=== PATIENT | male | born 1995 | race Hispanic/Latino ===

== ENCOUNTER 2023-01-01 10:33 | Emergency (ER) | payer SELFPAY ==
[2023-01-01 10:34] VITALS: BP 138/83; PULSE 92; RESP 18; TEMP 36.6; O2SAT 97; BMI 28.4
--- NOTE | 2023-01-01 10:43 | EX.ED.UPPERE ---
HPI History of Present Illness Chief Complaint: Upper Extremity Injury Informant: patient and friend Narrative Narrative: Here with his friend translating, right hand injury 45 minutes prior to arrival. Had his car up on a yunior, fell down crushing his hand however he was able to pull it out quickly. Pain to the right hand. No other injuries. History of nonsurgical wrist fracture 3 years ago while in [place]. Denies any allergies. No medications taken prior to arrival. Prior similar symptoms: No PFSH PFSH Medical History no medical history Home Medications hydrocodone-acetaminophen 5-325mg 5mg-325mg 1 tab PO Q6H PRN PRN Pain 3 days #12 TABLETS 01/01/23 [Rx Last Taken Unknown] ibuprofen 600 mg tablet 600 mg PO Q6H PRN PRN pain #30 TABLETS 01/01/23 [Rx Last Taken Unknown] Allergy/AdvReac Type Severity Reaction Status Date / Time No Known Allergies Allergy Verified 01/01/23 10:35 Surgical History no surgical history Social History Smoking Status: Never smoker ROS ROS ED Constitutional Constitutional ED: Denies chills, fever(s) or sweats Eyes Eyes: Denies change in vision ENT ENT ED: Denies dysphagia or sore throat Cardiovascular Cardiovascular: Denies chest pain, leg edema, palpitations or racing heartbeat Respiratory/Chest Respiratory/Chest: Denies cough, dyspnea or dyspnea on exertion Gastrointestinal Gastrointestinal: Denies abdominal pain, diarrhea, nausea or vomiting Genitourinary Genitourinary ED: Denies dysuria, hematuria or urinary frequency Musculoskeletal Musculoskeletal: Reports extremity pain; Denies back pain or neck pain Integumentary Denies rash or wounds Neurologic Neurologic: Denies headache(s), paresthesias or weakness EXAM Physical Exam Const Vital Signs: 01/01/23 10:34 Temperature 97.8 F Temperature Source Temporal Pulse Rate 92 Respiratory Rate 18 Blood Pressure 138/83 H Blood Pressure Mean 101 Pulse Ox 97 Oxygen Delivery Method Room Air Positive well nourished and well developed General Appearance ED: well developed and NAD HEENT Reports moist mucous membranes normocephalic and atraumatic Eyes PERRL, EOMs intact bilaterally and conjunctivae normal General Eye ED: Yes normal appearance of both eyes Neck no lymphadenopathy and supple General: Negative for tenderness Chest Wall Chest: Negative for tenderness Resp normal respiratory effort and normal air movement Effort and Inspection: symmetric chest movement; Negative for respiratory distress Cardio regular rate, regular rhythm and no murmurs Peripheral Pulses: pulses 2+ throughout GI normal to inspection, nondistended, normoactive bowel sounds and non-tender Palpation: Negative for guarding or rebound tenderness present Back/Spine no CVA tenderness and no thoracic nor lumbar tenderness Extremity Extremity Narrative: Upper extremity: No elbow or wrist tenderness. There is swelling to the ulnar aspect of the hand fourth and fifth metacarpals. Small abrasion superficially, no lacerations. Tenderness to palpation. No injuries to the digits. Cap refill less than sec since. General Extremety ED: Negative for edema or tenderness General Extremity: Negative for edema Neuro oriented x3 and no sensory deficits noted Sensorium / Orientation: awake and alert Skin no rashes or lesions noted Skin Narrative: See above MDM MDM MDM Narrative Medical decision making narrative: Interventions / MDM: Differential diagnosis: Right hand fracture, right hand contusion Diagnosis considered but do not suspect: N/A My EKG interpretation: N/A Imaging independently reviewed and interpreted by myself: Right hand 3 view x-ray: Acute boxer's fracture distal fifth metacarpal angle approximately 80 degrees. External documents reviewed: N/A Test considered but not ordered:N/A ED course: Patient with swelling tenderness, ibuprofen and [place] x1. X-ray notes acute boxer's fracture. Read discussed with patient and significant other, he denies being in a fight. He was placed in an ulnar gutter. Prescription for pain medications were printed due to electronic system not allowing to transmit through to his pharmacy. I did discuss with orthopedic on-call Dr. Caba for outpatient follow-up. Procedure note: Verbal consent. Splinting. Nylon sleeve placed right hand, Curlex dressing. 5 inch plaster was used for ulnar gutter, Ronald wrap to secure. Patient tolerated procedure well neurovascular intact post splinting. Re-evaluation: stable Disposition discussed with patient/family/significant other: Patient and significant other Case discussed with consulting clinician: N/A This note was generated with [employer] software. It may contain incorrect words, spelling, and punctuation that were not noted in checking the note before signing. Discharge Plan Triage Chief Complaint: Upper Extremity Injury ED Provider: Ernie Vitale Dx/Rx/DC Orders Clinical Impression: Closed right hand fracture, Boxer's fracture Instructions: ED Boxer Fracture Prescriptions: New ibuprofen 600 mg tablet 600 mg PO Q6H PRN PRN (Reason: pain) Qty: 30 0RF hydrocodone-acetaminophen [hydrocodone-acetaminophen] 5-325 mg tablet 1 tab PO Q6H PRN PRN (Reason: Pain) 3 Days Qty: 12 0RF Primary Care Provider: Care Physician,No Primary Referrals: Ryan Caba DO [Med Staff - Active Staff] - 3-5 Days Care Physician,No Primary [Primary Care Provider] - Activity Restrictions/Additional Instructions: Acute boxer's fracture right hand. Maintain your splint. Pain medicines as prescribed. Follow-up with Dr. Caba. Disposition Disposition: Home, Self Care Discharge Date/Time: 01/01/23 12:12
[2023-01-01] MEDS: Ibuprofen 600 MG Tablet PO (10:53)
[2023-01-01] MEDS: HYDROcodone Bitartrate/Apap 5/325 Tablet PO (10:53)
--- NOTE | 2023-01-01 10:55 | RAD_ITS ---
STUDY: X-RAY - RIGHT HAND REASON FOR EXAM: Male, 27 years old. injury TECHNIQUE: 3 view(s) of the hand. COMPARISON: None. FINDINGS: Normal radiocarpal articulation. Normal distal radioulnar joint. Normal visualized carpal bones. Normal carpal articulations Normal carpometacarpal articulation of the thumb. Normal second through fifth carpometacarpal joints. Acute comminuted volarly angulated fracture of the neck and head of the fifth metacarpal bone consistent with a boxer''s fracture. Normal metacarpophalangeal joint of the thumb. Normal interphalangeal joint of the thumb. Normal proximal and distal phalanges of the thumb. Normal metacarpophalangeal joints of the second through fifth fingers. Normal proximal and distal interphalangeal joints of the second through fifth fingers. Normal phalanges of the second through fifth fingers. The soft tissue structures are unremarkable. RAD/Hand Min 3 Views IMPRESSION: Acute boxer''s fracture. Electronically Signed: Scott Cabral MD at 11:38 EDT ,
[2023-01-01 12:11] VITALS: BP 118/63; PULSE 71; RESP 15; O2SAT 98
== END 2023-01-01 12:12 | disposition home or self-care (01) ==
LOC: ED 12:07
PROVIDERS: Emergency Provider Emergency Medicine; Visit Provider Emergency Medicine
DX: S62.336A Displaced fracture of neck of fifth metacarpal bone, right hand, initial encounter for closed fracture (principal); S67.21XA Crushing injury of right hand, initial encounter; W20.8XXA Other cause of strike by thrown, projected or falling object, initial encounter
CPT/HCPCS: 29125; 73130; 99283

== ENCOUNTER 2023-04-18 15:45 | Emergency (ER) | payer SELFPAY ==
[2023-04-18 15:47] VITALS: BP 142/90; PULSE 89; RESP 18; TEMP 36.1; O2SAT 98; BMI 29.3
--- NOTE | 2023-04-18 16:03 | EX.ED.UPPERE ---
HPI <BRANDON Darling - Last Filed: 04/18/23 18:18> History of Present Illness Chief Complaint: Laceration Narrative Narrative: 27-year-old [id number] male sustained a laceration to his right hand prior to arrival. He was washing a glass when it broke and sliced his hand. He states it was a large piece who is no concern for foreign body. No weakness or paresthesias. Bleeding controlled. No blood thinners. Last tetanus unknown. PFSH <BRANDON Darling - Last Filed: 04/18/23 18:18> PFSH Medical History no medical history Home Medications hydrocodone-acetaminophen 5-325mg 5mg-325mg 1 tab PO Q6H PRN PRN Pain 3 days #12 TABLETS 01/01/23 [Rx Last Taken Unknown] ibuprofen 600 mg tablet 600 mg PO Q6H PRN PRN pain #30 TABLETS 01/01/23 [Rx Last Taken Unknown] Allergy/AdvReac Type Severity Reaction Status Date / Time No Known Allergies Allergy Verified 01/01/23 10:35 Surgical History no surgical history Social History Smoking Status: Former smoker ROS <BRANDON Darling - Last Filed: 04/18/23 18:18> ROS ED ROS Narrative Neuro: Negative for motor/sensory dysfunction. Skin: Positive for laceration. Musc: Negative for joint pain, swelling. Heme: Negative for easy bruising, bleeding, lymphadenopathy. EXAM <BRANDON Darling - Last Filed: 04/18/23 18:18> Physical Exam Narrative Exam Narrative: CONST: Patient sitting in no acute distress. EYES: Normal inspection. NECK: Normal inspection. SKIN: 4 cm linear laceration extending vertically on the palmar aspect of the right thenar eminence to the level of the subcutaneous tissue. No active bleeding, no foreign body. EXTREMITIES: Normal appearance, full range of motion wrist and hand, normal and motor or sensory function median radial ulnar distributions, 2+ radial pulse and brisk cap refill. NEURO: Alert and answering questions appropriately. PSYCH: Normal affect. Const Vital Signs: 04/18/23 15:47 Temperature 97 F L Temperature Source Temporal Pulse Rate 89 Respiratory Rate 18 Blood Pressure 142/90 H Blood Pressure Mean 107 Pulse Ox 98 Oxygen Delivery Method Room Air MDM <BRANDON Darling - Last Filed: 04/18/23 18:18> [employer] Narrative Medical decision making narrative: Patient has a 4 cm right palmar laceration. Bleeding is controlled and extremity is neurovascularly intact. There is no concern or evidence of foreign body so no indication for x-ray. Wound was repaired with 5 sutures?see procedure note for details. Tetanus updated and patient was discharged in stable condition with wound care instructions. <Dr. Ernesto Delcid MD - Last Filed: 04/18/23 16:58> [facility] Treatment and Re-Evaluation Narrative: I have personally performed a face to face assessment of the patient and have reviewed the NEIL Note. I performed a substantive portion of the visit including all aspects of the following. My lomax findings include: History is accidental laceration by broken glass right palm. [id number]. No loss of function or numbness/tingling. History obtained through law examiner. Exam is 4 cm full-thickness linear clean appearing laceration at the base middle right palm, no arterial bleeding, no tendons visible, FDS FDP all digits intact. Medical Decison Making patient comfortable with tetanus update and repair, supervised the procedure performed by the PA, given appropriate discharge instructions for care and removal. Other additions or changes: [None] Procedures <BRANDON Darling - Last Filed: 04/18/23 18:18> Lacerations Right palm: Length: 4 cm Depth: Sub Q Shape: Linear Prep: Sterile Conditions and Shure-Clens Laceration repair: Irrigated, Lidocaine, Local and Skin sutures Irrigated (ml): 100 Number of Sutures/Albers: 5 Suture Information: Ethilon and 5-0 Comment: Tolerated procedure well without complications Discharge Plan Triage Chief Complaint: Laceration ED Midlevel Provider: Sakshi Fortune ED Provider: Ernesto Delcid Dx/Rx/DC Orders Clinical Impression: Laceration of right hand Instructions: ED Laceration Extremity Prescriptions: No Action ibuprofen 600 mg tablet 600 mg PO Q6H PRN PRN (Reason: pain) Qty: 30 0RF hydrocodone-acetaminophen [hydrocodone-acetaminophen] 5-325 mg tablet 1 tab PO Q6H PRN PRN (Reason: Pain) 3 Days Qty: 12 0RF Primary Care Provider: Care Physician,No Primary Referrals: Care Physician,No Primary [Primary Care Provider] - Activity Restrictions/Additional Instructions: Keep clean and have stitches removed in 7 days. Return sooner if you develop signs of infection like redness, swelling, pus, increased pain or fever. Disposition Disposition: Home, Self Care Discharge Date/Time: 04/18/23 17:24
[2023-04-18] MEDS: Diphth,Pertuss(Acell),Tet Vac 0.5 ML Vial IM (16:25)
[2023-04-18] MEDS: Lidocaine 1% (20 ml mdv) 20 ML Vial 10 ML INFILT (16:48)
== END 2023-04-18 17:24 | disposition home or self-care (01) ==
PROVIDERS: Emergency Provider Emergency Medicine; Visit Provider Emergency Medicine
DX: S61.411A Laceration without foreign body of right hand, initial encounter (principal); W25.XXXA Contact with sharp glass, initial encounter; Y93.G1 Activity, food preparation and clean up; Z23 Encounter for immunization; Z87.891 Personal history of nicotine dependence
CPT/HCPCS: 12002; 90471; 90715; 99283

== ENCOUNTER 2024-02-22 19:57 | Emergency (ER) | payer SELFPAY ==
[2024-02-22 19:58] VITALS: BP 135/87; PULSE 75; RESP 18; TEMP 36.4; O2SAT 98; BMI 30.1
--- NOTE | 2024-02-22 20:05 | RAD_ITS ---
EXAM: XR RIGHT FOOT COMPLETE, 3 OR MORE VIEWS CLINICAL INDICATION: injury TECHNIQUE: Frontal, lateral and oblique views of the right foot. COMPARISON: No relevant prior studies available. FINDINGS: BONES/JOINTS: Unremarkable. No acute fracture. No subluxation. Normal alignment. Preservation of the joint space. No sclerotic or destructive changes observed. SOFT TISSUES: Mild soft tissue swelling at the dorsum of the proximal foot on the lateral view. No radiopaque foreign body. RAD/Foot min 3 Views IMPRESSION: Mild soft tissue swelling. No other acute findings in the right foot. Electronically Signed: Rosa Maria San MD at 21:05 EDT ,
--- NOTE | 2024-02-22 22:10 | ED.VIS.LOWEX ---
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 He has been having pain and bruising in the great toe as well as the dorsal midfoot more to the tibial aspect. Has been able to walk on it but it is painful. No other injuries. [facility] Medical History History of hand fracture Home Medications ?Medication ?Instructions ?Recorded ?Last Taken ?Type NK 02/22/24 Unknown History Allergy/AdvReac Type Severity Reaction Status Date / Time No Known Allergies Allergy Verified 02/22/24 19:58 Family History no significant family his Surgical History no surgical history Social History Smoking Status: Current some day smoker tobacco type: cigarettes ROS ROS ED Constitutional Constitutional ED: Denies chills or fever(s) Musculoskeletal Musculoskeletal: Reports extremity pain; Denies neck pain Integumentary Denies Abrasions, rash or wounds Neurologic Neurologic: Denies paresthesias or weakness EXAM Physical Exam Const Vital Signs: 02/22/24 19:58 Temperature 97.6 F L Temperature Source Temporal Pulse Rate 75 Respiratory Rate 18 Blood Pressure 135/87 H Blood Pressure Mean 103 Pulse Ox 98 Oxygen Delivery Method Room Air Positive well nourished and well developed General Appearance ED: well developed and NAD Neck full ROM and supple Back/Spine normal ROM and normal to inspection Extremity Extremity Narrative: Right foot: Ecchymosis and tenderness to the MTPJ of the right great toe, with some swelling and tenderness in the midfoot generally, nonfocal. No hindfoot tenderness or ankle tenderness. Other than the great toe other toes nontender full range of motion without difficulty. There are no deformities. Neuro oriented x3, no focal motor deficits and no sensory deficits noted Sensorium / Orientation: alert Psych mental status grossly normal and thought process normal Skin no wounds Rashes: no rashes MDM MDM MDM Narrative Medical decision making narrative: Three-view x-ray series of the right foot on my interpretation is negative for acute fracture. There are some soft tissue swelling. Radiology is in agreement. Patient reassured, given a postop shoe, ibuprofen, and light duty on work note. Radiography Diagnostic Testing: Clinical Impression(s) from Imaging Studies Foot X-Ray 02/22/24 20:05 IMPRESSION: Mild soft tissue swelling. No other acute findings in the right foot. Electronically Signed: Rosa Maria San MD at 21:05 EDT Reading Location ID and State: [facility] / [place] Tel , Service support , Discharge Plan Triage Chief Complaint: Lower Extremity Injury ED Provider: Ernesto Delcid Dx/Rx/DC Orders Clinical Impression: Sprain of foot, right Instructions: ED Foot Sprain Prescriptions: No Action NK Stand Alone Forms: Work Status Form Primary Care Provider: Care Physician,No Primary Referrals: Mp Lozano DPM [Med Staff - Active Staff] - 1-2 Weeks (si no jor) Print Language: Hebrew Disposition Disposition: Home, Self Care
[2024-02-22] MEDS: Ibuprofen 600 MG Tablet PO (22:30)
[2024-02-22 22:32] VITALS: BP 121/79; PULSE 79; RESP 16; TEMP 36.6; O2SAT 99
== END 2024-02-22 22:33 | disposition home or self-care (01) ==
PROVIDERS: Emergency Provider Emergency Medicine; Visit Provider Emergency Medicine
DX: S93.601A Unspecified sprain of right foot, initial encounter (principal); W55.22XA Struck by cow, initial encounter; Y93.K9 Activity, other involving animal care; Y92.73 Farm field as the place of occurrence of the external cause; F17.210 Nicotine dependence, cigarettes, uncomplicated
CPT/HCPCS: 73630; 99283